=== PATIENT | male | born 1965 | race Caucasian/White ===

== ENCOUNTER 2017-02-08 13:23 | Emergency (ER) | payer OTHER ==
[~2017-02-08 13:23] MED LIST: ASPIRIN81 M2 PO; COREG6.25 MG PO; JARDIANCE25 MG PO; LEVEMIR FL100 UNIT/1 SUBQ; NO MEDICATIONS; NOVOLOG100 U/M2
== END 2017-02-08 14:56 | disposition home or self-care (01) ==
LOC: CED 13:23 → CFTX 13:23
DX: S39.012A Strain of muscle, fascia and tendon of lower back, initial encounter (principal); M54.42 Lumbago with sciatica, left side; E11.9 Type 2 diabetes mellitus without complications; I10 Essential (primary) hypertension; Z88.0 Allergy status to penicillin; X50.9XXA Other and unspecified overexertion or strenuous movements or postures, initial encounter; Y92.69 Other specified industrial and construction area as the place of occurrence of the external cause; Y99.0 Civilian activity done for income or pay
CPT/HCPCS: 99283